=== PATIENT | male | born 1950 | race Hispanic/Latino ===

== ENCOUNTER → 2021-02-08 | Outpatient (CLI) | payer SELFPAY | END | disposition home or self-care (01) | LOC: OIH 13:30 | PROVIDERS: ATTEND Internal Medicine Cardiovascular Disease | DX: Z13.6 Encounter for screening for cardiovascular disorders (principal) | CPT/HCPCS: 75571 ==

== ENCOUNTER → 2022-06-19 | Outpatient (CLI) | payer MEDICARE | END | disposition home or self-care (01) | LOC: RAH 15:16 | PROVIDERS: ATTEND Physical Medicine & Rehabilitation | DX: M54.12 Radiculopathy, cervical region (principal) | CPT/HCPCS: 72050 ==

== ENCOUNTER → 2022-12-28 | Outpatient (CLI) | payer OTHER | END | disposition home or self-care (01) | LOC: RAH 11:32 | PROVIDERS: ATTEND Physical Medicine & Rehabilitation | DX: M47.814 Spondylosis without myelopathy or radiculopathy, thoracic region (principal); M48.04 Spinal stenosis, thoracic region; M54.6 Pain in thoracic spine; G82.20 Paraplegia, unspecified; Z88.1 Allergy status to other antibiotic agents | CPT/HCPCS: 72146 ==

== ENCOUNTER → 2024-02-27 | Outpatient (CLI) | payer OTHER | END | disposition home or self-care (01) | LOC: RAH 11:03 | PROVIDERS: ATTEND Physical Medicine & Rehabilitation | DX: M47.814 Spondylosis without myelopathy or radiculopathy, thoracic region (principal); M47.812 Spondylosis without myelopathy or radiculopathy, cervical region; M50.222 Other cervical disc displacement at C5-C6 level; M48.02 Spinal stenosis, cervical region; M50.221 Other cervical disc displacement at C4-C5 level; M50.223 Other cervical disc displacement at C6-C7 level; M50.21 Other cervical disc displacement, high cervical region; G82.22 Paraplegia, incomplete; N28.1 Cyst of kidney, acquired | CPT/HCPCS: 72141; 72146 ==

== ENCOUNTER → 2025-08-18 | Outpatient (CLI) | payer OTHER ==
--- NOTE | 2025-08-18 17:19 | HMCIMG ---
EXAM: MR Thoracic Spine Without IV Contrast CLINICAL HISTORY: Thoracic spine pain. TECHNIQUE: Multiplanar, multisequence magnetic resonance imaging of the thoracic spine performed without intravenous contrast. COMPARISON: None available. FINDINGS: Vertebrae: Normal vertebral alignment. No acute compression fracture or destructive osseous lesion. Multilevel thoracic spondylosis with intervertebral disc degeneration (Pfirrmann grades III???IV) and Modic type II endplate changes.Multiple Schmorl???s nodes seen throughout the mid and lower thoracic vertebral bodies. Intervertebral Discs: Diffuse desiccation with posterior disc osteophyte complexes at multiple thoracic levels causing mild to moderate spinal canal narrowing and ventral cord contouring, most pronounced from T8???T9 through T11???T12. 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 Spinal Cord: Areas of ventral cord indentation with focal thinning and mild T2 hyperintensity consistent with myelomalacia, secondary to chronic compressive changes. Remainder of the cord shows preserved signal and contour. Paraspinal Soft Tissues: No abnormal mass, fluid collection, or edema. IMPRESSION:1. Posterior disc osteophyte complexes causing mild to moderate spinal canal narrowing and ventral cord contouring, most pronounced from T8-T9 through T11-T12, with focal cord thinning and mild T2 hyperintensity consistent with chronic myelomalacia. 2. Multilevel thoracic spondylosis with disc degeneration (Pfirrmann grades III-IV), Modic type II endplate changes, and multiple Schmorl's nodes throughout the mid and lower thoracic vertebral bodies. 3. 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 4. Normal vertebral alignment without acute fracture or destructive osseous lesion. /[place]
== END | disposition home or self-care (01) ==
LOC: RAH 07:49
PROVIDERS: ATTEND Physical Medicine & Rehabilitation
DX: M47.814 Spondylosis without myelopathy or radiculopathy, thoracic region (principal); M48.04 Spinal stenosis, thoracic region; M54.6 Pain in thoracic spine; M25.78 Osteophyte, vertebrae
CPT/HCPCS: 72146